=== PATIENT | female | born 2000 | race African-American/Black ===

== ENCOUNTER 2024-07-17 19:12 | Emergency (ER) | payer OTHER ==
[~2024-07-17] VITALS: Ht 160 cm; Wt 54.5 kg
[2024-07-17 19:13] VITALS: TEMP 98.1
[2024-07-17] MEDS: dexAMETHasone 20MG/5ML VIAL IV ONE (20:06)
[2024-07-17] MEDS: diphenhydrAMINE 50MG/ML VIAL IV ONE (20:06)
[2024-07-17 23:00] VITALS: BP 102/56
[2024-07-17 23:15] VITALS: O2SAT 96
== END 2024-07-17 23:39 | disposition home or self-care (01) ==
LOC: M ED 19:12
DX: R06.02 Shortness of breath (principal)
CPT/HCPCS: 71045; 93041; 94760; 96374; 99285; J1100; J1200

== ENCOUNTER 2024-12-10 08:29 | Outpatient (CLI) | payer OTHER ==
[~2024-12-10] VITALS: Ht 190.5 cm; Wt 60.1 kg
[2024-12-10 08:42] VITALS: BP 114/66
[2024-12-10 09:14] LABS: APPEARANCE, URINE HAZY (CLEAR); BACTERIA, URINE AUTO 1+ (NEGATIVE); BILIRUBIN, URINE AUTO NEGATIVE (NEGATIVE); BLOOD, URINE BLOOD 2+ (NEGATIVE); COLOR, URINE YELLOW (YELLOW); GLUCOSE, URINE (UA) AUTO NEGATIVE (NEGATIVE); KETONE, URINE AUTO NEGATIVE (NEGATIVE); LEUKOCYTE ESTERASE, URINE AUTO 2+ (NEGATIVE); MUCUS, URINE SMALL (NEGATIVE); NITRITE, URINE AUTO NEGATIVE (NEGATIVE); PROTEIN, URINE AUTO NEGATIVE (NEGATIVE); RBC, URINE AUTO 46 /HPF (0-3); SPECIFIC GRAVITY URINE AUTO 1.019 (1.002-1.035); SQUAMOUS EPITHELIAL CELL UR AU 7 /HPF (0-6); UROBILINOGEN, URINE AUTO 0.2 mg/dL (0.0-2.0); WBC, URINE AUTO 3 /HPF (0-3)
[2024-12-10] MEDS ORDERED: PERCOCET 5MG/325MG TAB PO ONE (10:35)
[2024-12-10] MEDS: LR 1,000 ML IV ONE (10:51)
[2024-12-10] MEDS: ACETAMINOPHEN 500 MG TAB PO ONE (11:00)
[2024-12-10 11:34] LABS: HEMATOCRIT 34.1 % (36.0-47.0); HEMOGLOBIN 11.1 g/dl (12.0-15.5); MEAN CORPUSCULAR HGB CONC 32.6 g/dl (32.0-36.5); PLATELET COUNT, AUTOMATED 342 10^3/uL (150-450); RED BLOOD COUNT 4.11 10^6/uL (4.00-5.40); WHITE BLOOD COUNT 12.8 10^3/uL (4.0-10.0)
[2024-12-10 11:35] VITALS: BP 108/63
[2024-12-10 11:41] LABS: ALBUMIN 3.4 G/DL (3.2-5.2); ALKALINE PHOSPHATASE 55 U/L (35-104); ALT/SGPT 15 U/L (7.0-40); AST/SGOT 16 U/L (<34); BILIRUBIN,TOTAL 0.3 MG/DL (0.3-1.2); BLOOD UREA NITROGEN 14 MG/DL (9-23); CALCIUM LEVEL 9.2 MG/DL (8.5-10.1); CARBON DIOXIDE LEVEL 25 MMOL/L (20-31); CHLORIDE LEVEL 104 MMOL/L (98-107); CREATININE FOR GFR 0.79 MG/DL (0.55-1.30); GLOMERULAR FILTRATION RATE > 60.0 (>60); GLUCOSE, FASTING 90 MG/DL (60-100); SODIUM LEVEL 138 MMOL/L (136-145); TOTAL PROTEIN 6.9 G/DL (5.7-8.2)
== END 2024-12-10 12:55 | disposition home or self-care (01) ==
LOC: M LDO 08:29
PROVIDERS: ATTEND Advanced Practice Midwife
DX: O26.892 Other specified pregnancy related conditions, second trimester (principal); O26.832 Pregnancy related renal disease, second trimester; O99.342 Other mental disorders complicating pregnancy, second trimester; R10.2 Pelvic and perineal pain; M54.50 Low back pain, unspecified; F41.9 Anxiety disorder, unspecified; Z3A.21 21 weeks gestation of pregnancy
CPT/HCPCS: 76775; 80053; 81001; 85027; 87086; G0463

== ENCOUNTER 2025-02-02 13:47 | Emergency (ER) | payer OTHER ==
[2025-02-02] MEDS ORDERED: PRENTAB9 PO (15:00)
[2025-02-02] MEDS ORDERED: FAMO20TA PO (15:00)
[2025-02-02] MEDS ORDERED: METO5TAB2 PO (15:00)
== END 2025-02-02 13:50 | disposition admitted as inpatient to this hospital (09) ==
LOC: M ED 13:47
DX: Z53.21 Procedure and treatment not carried out due to patient leaving prior to being seen by health care provider (principal)

== ENCOUNTER 2025-02-02 13:55 | Outpatient (CLI) | payer OTHER ==
[~2025-02-02] VITALS: Ht 160 cm; Wt 63.8 kg
[2025-02-02 14:27] VITALS: BP 109/66
[2025-02-02] MEDS ORDERED: FAMO20TA PO (15:00)
[2025-02-02] MEDS ORDERED: PRENTAB9 PO (15:00)
[2025-02-02] MEDS ORDERED: METO5TAB2 PO (15:00)
[2025-02-02 16:19] VITALS: BP 112/68
== END 2025-02-02 16:20 | disposition home or self-care (01) ==
LOC: M LDO 13:55
PROVIDERS: ATTEND Obstetrics & Gynecology
DX: O36.8130 Decreased fetal movements, third trimester, not applicable or unspecified (principal); O26.893 Other specified pregnancy related conditions, third trimester; N89.8 Other specified noninflammatory disorders of vagina; Z3A.29 29 weeks gestation of pregnancy
CPT/HCPCS: 59025; G0463

== ENCOUNTER 2025-02-18 20:38 | Emergency (ER) | payer OTHER ==
[~2025-02-18] VITALS: Ht 160 cm; Wt 64.5 kg
[~2025-02-18 20:38] MED LIST: FAMO20TA PO; METO5TAB2 PO; PRENTAB9 PO
[2025-02-18 20:40] VITALS: BP 118/60; TEMP 97.8; O2SAT 100
[2025-02-18] MEDS ORDERED: CYCL5TAB4 (20:45)
[2025-02-19] MEDS ORDERED: ONDA-83 PO (00:22)
== END 2025-02-18 20:50 | disposition admitted as inpatient to this hospital (09) ==
LOC: M ED 20:38
DX: Z53.21 Procedure and treatment not carried out due to patient leaving prior to being seen by health care provider (principal)

== ENCOUNTER 2025-02-18 23:03 | Outpatient (CLI) | payer OTHER ==
[~2025-02-18] VITALS: Ht 160 cm; Wt 64.7 kg
[~2025-02-18 23:03] MED LIST changes: +CYCL5TAB4
[2025-02-18 23:23] VITALS: BP 101/60
[2025-02-18] MEDS ORDERED: HOME MED LIST COMPLETE! XX SCH (23:35)
[2025-02-19] MEDS: ONDANSETRON 4MG TAB PO ONE (00:20)
[2025-02-19] MEDS ORDERED: ONDA-83 PO (00:22)
== END 2025-02-19 00:50 | disposition home or self-care (01) ==
LOC: M LDO 23:03
PROVIDERS: ATTEND Advanced Practice Midwife
DX: O99.343 Other mental disorders complicating pregnancy, third trimester (principal); O99.613 Diseases of the digestive system complicating pregnancy, third trimester; O26.893 Other specified pregnancy related conditions, third trimester; R12 Heartburn; R11.0 Nausea; R10.30 Lower abdominal pain, unspecified; F41.9 Anxiety disorder, unspecified; Z3A.31 31 weeks gestation of pregnancy
CPT/HCPCS: 59025; G0463